=== PATIENT | female | born 1980 | race Caucasian/White ===

== ENCOUNTER 2020-08-27 01:31 | Outpatient (CLI) | payer SELFPAY ==
[2020-08-27 18:52] LABS: SARS-CoV-2 RNA PCR Negative
== END 2020-08-27 01:32 | disposition home or self-care (01) ==
LOC: ANHCOVIDDT 01:31
PROVIDERS: Visit Provider Surgery Plastic and Reconstructive Surgery
DX: Z01.812 Encounter for preprocedural laboratory examination (principal); Z20.828 Contact with and (suspected) exposure to other viral communicable diseases
CPT/HCPCS: 87635; C9803; U0003

== ENCOUNTER 2020-08-30 05:47 | Day surgery (SDC) | payer OTHER, SELFPAY ==
[2020-08-22 09:55] VITALS: BMI 27.8
[2020-08-30] VITALS (8 sets, daily range): BP systolic 125–145; BP diastolic 85–94; PULSE 71–86; RESP 13–16; TEMP 36.7–37.4; O2SAT 98–100; BMI 24.6
--- NOTE | 2020-08-30 06:59 | WPDHPUPDATE1 ---
History and Physical Update Update Date/Time: 08/30/20 06:59 History and Physical has been reviewed, including an updated exam of the patient. There are NO changes in the patient's condition. Risks, benefits, and alternatives have been discussed and questions answered. Patient agrees to proceed with procedure.
--- NOTE | 2020-08-30 07:06 | WPDANESEPPF ---
Anes - Initial Pre Proc Eval Procedure: Operation Date: 08/30/20 07:30 Proposed Procedures p Bilateral Breast Augmentation Mammoplasty - Teddy White MD s Bilateral Breast Mastopexy - Teddy White MD Date/Time: 08/30/20 07:06 Surgeon: Teddy White MD Pre Op Diagnosis: Micromastia Patient Data Age: 40 Gender: F Height: 5 ft 5 in Weight: 67.1 kg Last Vital Signs Temp 37.4 C 08/30/20 06:43 Pulse 72 08/30/20 06:43 Resp 15 08/30/20 06:43 BP 145/88 H 08/30/20 06:43 Pulse Ox 100 08/30/20 06:43 Allergies Allergy/AdvReac Type Severity Reaction Status Date / Time No Known Allergies Allergy Verified 08/30/20 06:00 Home Medications Medication Instructions Recorded Confirmed Type docusate sodium 100 mg capsule 100 mg PO DAILY #14 cap 08/22/20 08/30/20 Rx levothyroxine 50 mcg PO DAILY 08/22/20 08/30/20 History ondansetron HCl 4 mg tablet 4 mg PO Q8H #28 tablet 08/22/20 08/30/20 Rx carisoprodol 350 mg tablet 350 mg PO TID PRN #21 tablet 08/23/20 08/30/20 Rx oxycodone-acetaminophen 5 mg-325 1 tablet PO Q6H PRN #15 tablet 08/23/20 08/30/20 Rx mg tablet Patient hx anesthesia problems: none Family hx anesthesia problems: none PMFSH Social History Social History Smoking status: Former smoker Additional smoking assessment comments: smoked as a teenager. Stopped at 17 years old. Alcohol intake: current Alcohol use details: 1 glass a week Substance use: never Substance use type: does not use Living arrangements: with family Spiritual care concerns: No Anes - Eval Final PreProcedure Day of Procedure 08/30/20 07:06 Patient weight: normal Heart: regular rate and rhythm Lungs: clear to auscultation Airway: Mallampati scale class 1 Neurological: alert and oriented Last oral intake: >/= 8 hours ASA classification: II Emergent: no Anesthetic plan: proceed Anesthesia type and monitoring: general LMA and standard monitoring Informed Consent: The patient's anesthetic plan and its attendant risks and benefits were discussed with the patient/family/POA. Questions were solicited and answers provided to the satisfaction of the patient/family/POA.
[2020-08-30] MEDS: LACTATED RINGERS 1,000 ML 30 ML IV CONT ×2 (07:17→09:43)
[2020-08-30] MEDS: ceFAZolin SODIUM 2 GM/20 ML SW SYRINGE IV PUSH (07:20)
[2020-08-30] MEDS: SCOPOLAMINE 1.5 MG PATCH TRANSDERM (07:23)
[2020-08-30] MEDS: LIDO 1%/EPINEPHRINE 1:100,000 20 ML VIAL 25 ML INFILTRATE (07:53)
--- NOTE | 2020-08-30 09:34 | PM.PROC ---
Procedure Note - Detailed Date of procedure: 08/30/20 Pre-op diagnosis: Micromastia Post-op diagnosis: same Procedure performed: Bilateral augmentation mastopexy Description of procedure: She is here today for bilateral breast augmentation. Previously and again today the risks, benefits, alternatives were discussed in extensive detail. I wanted her to be very realistic about the risks involved as well as expectations. We discussed aftercare and what to monitor for. Made sure answered all of her questions to her satisfaction today and consent was obtained. Marked in the preoperative holding area with their verification. The patient was taken to the operating room placed supine on the operating table. Anesthesia was provided by anesthesiology. A surgical time-out was taken. We cleansed the skin and 1% lidocaine and 0.25% Marcaine with epinephrine was used anesthetize as a field block. She was prepped and draped in a standard sterile fashion. Tegaderm nipple Turner were placed. A 15 blade used to make an incision along the vertical . Dissection was continued until the chest wall as identified. I incised the pectoralis major along its inferior border and completely released the inferior border leaving the medial border intact. I created a subpectoral pocket in the appropriate dimensions based on our preoperative planning for the implant. I then copiously irrigated with saline solution and verified a strict hemostasis. Next the use a triple antibiotic and Betadine containing solution to irrigate the pocket. I washed my gloves with the triple antibiotic and Betadine solution. We washed the implant immediately upon opening it with this solution and only opened it when we needed it. I used implant funnel and no-touch technique. The implant was introduced into the pocket using the funnel. Having verified positioning of the implant this was closed using 2-0 Vicryl. I then tailor tacked the breast into place. Marked the NAC at 38mm based on preoperative measurements, intraoperative measurements, and observations which were in full agreement. I deepithelialized a superior pedicle. This was inset with 3-0 monocryl. I resected a central keel and elevated medial / lateral flaps. Closed with 2-0 PDS, 3- Monocryl / 3-0 stratafix and running subcuticular 4-0 Monocryl followed by tissue glue. Fluffs, Michel wrap, and surgical bra were placed. Patient was awoke and taken to PACU without difficulty. All instrument sponge counts were correct at the end of the case. Anesthesia: GLMA Surgeon: Teddy White MD Estimated blood loss (mL): 20 Drains: No Packing: No Pathology: none sent Complications: No immediate complications Condition: stable Disposition: PACU Findings: Bilateral superior pedicle. Inverted T (minimal IMF on right due to asymmetry preop) Bilateral [employer]le [employer] Implants 320cc Right: REF LP-320 [id number] Left: REF SSLP-320 [id number]
[2020-08-30] MEDS: fentaNYL CITRATE INJ (*CRX) 100 MCG/2 ML VIAL 25 MCG IV PUSH ×3 (09:55→10:16)
--- NOTE | 2020-08-30 11:16 | PC.NURSE ---
Actual time of vital signs. was at 1030 wrong time of 1042 was entered
--- NOTE | 2020-08-30 11:27 | WPDANESPN ---
Anes - Prog Note Post-Op Date/Time: 08/30/20 11:27 Cardiovascular status: normal Respiratory status: normal Airway patency: baseline Mental status: baseline Post-Op hydration status: normal Vital Signs: Last Vital Signs Temp 36.8 C 08/30/20 11:00 Pulse 77 08/30/20 11:00 Resp 14 08/30/20 11:00 BP 141/94 H 08/30/20 11:00 Pulse Ox 100 08/30/20 11:00 Pain Score (VAS): 2/10 Post-procedural complaints: none Patient Feedback: Patient satisfied with anesthetic care and safe for discharge home..
== END 2020-08-30 11:20 | disposition home or self-care (01) ==
PROVIDERS: Visit Provider Surgery Plastic and Reconstructive Surgery
PROC: (CPT 19325; principal; 2020-08-30 07:30)
PROC: (CPT 19316; 2020-08-30 07:30)
DX: N64.82 Hypoplasia of breast (principal)
CPT/HCPCS: 19325